=== PATIENT | female | born 1975 | race Two or more races ===

== ENCOUNTER 2022-03-10 23:26 | Emergency (ER) | payer OTHER ==
[~2022-03-10] VITALS: Ht 160 cm; Wt 100.0 kg
[2022-03-11 00:52] VITALS: BP 147/93
[2022-03-11] MEDS ORDERED: IBUPROFEN 600MG TABLET PO ONE (02:30)
[2022-03-11] MEDS ORDERED: HYDROCODONE/ACETAMINOPHEN 5/325MG TABLET PO ONE (02:30)
== END 2022-03-11 07:58 | disposition left against medical advice (07) ==
LOC: ER 23:26
DX: S50.02XA Contusion of left elbow, initial encounter (principal); S56.912A Strain of unspecified muscles, fascia and tendons at forearm level, left arm, initial encounter; W18.39XA Other fall on same level, initial encounter; Y93.89 Activity, other specified; Y92.89 Other specified places as the place of occurrence of the external cause; Y99.8 Other external cause status; J45.909 Unspecified asthma, uncomplicated; E11.9 Type 2 diabetes mellitus without complications; Z98.51 Tubal ligation status
CPT/HCPCS: 99281